=== PATIENT | male | born 1995 | race Caucasian/White ===

== ENCOUNTER 2018-03-24 20:51 | Emergency (ER) | payer SELFPAY ==
[2018-03-24 21:13] VITALS: BP 125/58
[2018-03-24] MEDS ORDERED: Lidocaine 1% MPF wEPI 200,000* 30 ML SDV INJ ONE (21:33)
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
== END 2018-03-24 22:11 | disposition home or self-care (01) ==
LOC: UCCORT 20:51
DX: S01.01XA Laceration without foreign body of scalp, initial encounter (principal); V89.2XXA Person injured in unspecified motor-vehicle accident, traffic, initial encounter; Y92.410 Unspecified street and highway as the place of occurrence of the external cause
CPT/HCPCS: 12001; 99211; G0463; J2001